=== PATIENT | female | born 1960 | race Caucasian/White ===

== ENCOUNTER → 2023-09-10 16:51 | Outpatient (REF) | payer OTHER, SELFPAY | LOC: HWRAD 16:51 | PROVIDERS: ATTENDING PHYSICIAN Physician Assistant | DX: M25.551 Pain in right hip (principal); M25.552 Pain in left hip | CPT/HCPCS: 73523 ==

== ENCOUNTER → 2024-07-08 08:15 | Outpatient (REF) | payer OTHER, SELFPAY | LOC: DHSLP 08:15 | PROVIDERS: ATTENDING PHYSICIAN Internal Medicine Critical Care Medicine | DX: G47.33 Obstructive sleep apnea (adult) (pediatric) (principal); R09.02 Hypoxemia | CPT/HCPCS: 95811 ==

== ENCOUNTER → 2025-02-17 14:36 | Outpatient (REF) | payer OTHER, SELFPAY | LOC: HWRAD 14:36 | PROVIDERS: ATTENDING PHYSICIAN Physician Assistant | DX: M25.472 Effusion, left ankle (principal) | CPT/HCPCS: 73610 ==